=== PATIENT | male | born 1970 | race Caucasian/White ===

== ENCOUNTER 2021-09-11 06:53 | Day surgery (SDC) | payer OTHER ==
[~2021-09-11 06:53] MED LIST: Dextrose 5%-0.45% NaCl 1,000 ML IV SCH; Midazolam 1 MG/ML 2 ML SDV ONE; Sodium Chloride 0.9% 10 ML Syringe FLUSH PRN; Sodium Chloride 0.9% 10 ML Syringe FLUSH SCH; fentaNYL 100 MCG/2 ML SDV ONE
[2021-09-11] MEDS ORDERED: fentaNYL 100 MCG/2 ML SDV IV ONE ×7 (06:54→08:32)
[2021-09-11] MEDS ORDERED: Midazolam 1 MG/ML 2 ML SDV IV ONE ×7 (06:54→08:26)
== END 2021-09-11 10:30 | disposition home or self-care (01) ==
LOC: DL.ENDO 06:53
PROVIDERS: ATTEND Internal Medicine Gastroenterology
DX: Z12.11 Encounter for screening for malignant neoplasm of colon (principal); F12.90 Cannabis use, unspecified, uncomplicated; Z72.89 Other problems related to lifestyle; Z98.890 Other specified postprocedural states
CPT/HCPCS: J2250; J3010; J7042